=== PATIENT | female | born 1945 | race Caucasian/White ===

== ENCOUNTER 2020-03-07 19:01 | Inpatient (IN) | payer MEDICARE ==
[~2020-03-07] VITALS: Ht 160 cm; Wt 82.8 kg
--- NOTE | 2020-03-07 19:25 | NUR ---
Dr Freed got the patient from the [facility] and placed the pt in T2 and did his H&P, I then did triage and so there is a delay in order of an EKG.
[2020-03-07] MEDS ORDERED: HYDR12.55 PO (19:49)
[2020-03-07] MEDS ORDERED: METO-411 PO (19:49)
[2020-03-07 20:03] LABS: BASOPHILS # (AUTO) 0.1 X10'3 (0-0.2); BASOPHILS % (AUTO) 0.9 % (0-1); EOSINOPHILS # (AUTO) 0.4 X10'3 (0-0.9); EOSINOPHILS % (AUTO) 4.2 % (0-6); HEMATOCRIT 40.5 % (35.0-45.0); HEMOGLOBIN 13.6 g/dl (12.0-16.0); LYMPHOCYTES # (AUTO) 2.3 X10'3 (1.1-4.8); LYMPHOCYTES % (AUTO) 24.2 % (21-51); MEAN CORPUSCULAR HEMOGLOBIN 29.7 PG (27.0-31.0); MEAN CORPUSCULAR HGB CONC 33.6 g/dL (33.0-36.5); MEAN CORPUSCULAR VOLUME 88.4 FL (78-98); MEAN PLATELET VOLUME 8.6 FL (7.4-10.4); MONOCYTES # (AUTO) 0.9 X10'3 (0-0.9); NEUTROPHILS # (AUTO) 5.7 X10'3 (1.8-7.7); NEUTROPHILS % (AUTO) 60.7 % (42-75); PLATELET COUNT 254 X10'3 (140-440); RED BLOOD COUNT 4.58 X10'6 (4.20-5.60); RED CELL DISTRIBUTION WIDTH 13.8 % (11.5-14.5); WHITE BLOOD COUNT 9.3 X10'3 (4.5-11.0)
[2020-03-07 20:12] LABS: CLARITY,URINE CLEAR (Clear); COLOR,URINE STRAW (Yellow); GLUCOSE, URINE NEGATIVE (Neg); KETONES,URINE NEGATIVE (Neg); LEUKOCYTE ESTERASE ,URINE NEGATIVE (Neg); NITRITES, URINE NEGATIVE (Neg); OCCULT BLOOD,URINE NEGATIVE (Neg); PROTEIN,URINE NEGATIVE (Neg); UROBILINOGEN,URINE 0.2 E.U/dL (0.2-1.0)
[2020-03-07 20:13] LABS: ALANINE AMINOTRANSFERASE 19 U/L (12-78); ALBUMIN 3.6 G/DL (3.4-5.0); ALBUMIN/GLOBULIN RATIO 0.9 (1.1-1.5); ALKALINE PHOSPHATASE 61 IU/L (46-116); ANION GAP 4 (8-16); ASPARTATE AMINO TRANSFERASE 16 U/L (10-37); BILIRUBIN,TOTAL 0.4 MG/DL (0.1-1.0); BLOOD UREA NITROGEN 18 MG/DL (7-18); BUN/CREATININE RATIO 16.1 (6.6-38.0); CALCIUM 9.1 MG/DL (8.5-10.1); CHLORIDE 101 MMOL/L (99-107); CREATININE 1.12 MG/DL (0.40-0.90); GLUCOSE 98 MG/DL (70-104); PARTIAL THROMBOPLASTIN TIME 30 SECONDS (22-32); POTASSIUM 4.6 MMOL/L (3.5-5.1); SODIUM 136 MMOL/L (135-145); TOTAL CARBON DIOXIDE 30.7 MMOL/L (24-32); TOTAL PROTEIN 7.4 G/DL (6.4-8.2); eGFR 47 ML/MIN
[2020-03-07 20:19] LABS: UA COLLECTION TYPE CLN CATCH MIDSTREAM
[2020-03-07] MEDS ORDERED: iohexol 350MG/ML 100ml bottle IV ONE (20:38)
[2020-03-07] MEDS ORDERED: hyDRALAzine 10mg tablet PO SCH (20:40)
[2020-03-07] MEDS ORDERED: hyDRALAzine 10mg tablet PO ONE (20:40)
[2020-03-07] MEDS ORDERED: temazepam 15mg capsule PO PRN (21:00)
--- NOTE | 2020-03-07 22:10 | NUR ---
Hospitalist at bedside examining pt. for possible admission.
[2020-03-07] MEDS ORDERED: potassium CL 10mEq/100ml bag 100 ML IV PRN ×2 (22:40)
[2020-03-07] MEDS ORDERED: magnesium 4gm in 100ml NS 100 ML IV PRN (22:40)
[2020-03-07] MEDS ORDERED: magnesium hydroxide 30ml (MOM) UD suspension PO PRN (22:40)
[2020-03-07] MEDS ORDERED: metoclopramide 5 mg/ml inj IV PRN (22:40)
[2020-03-07] MEDS ORDERED: potassium Cl 20 mEq SR tablet PO PRN ×2 (22:40)
[2020-03-07] MEDS ORDERED: mag hydrox/Alum hydrox/simeth 30ml oral suspension PO PRN (22:40)
[2020-03-07] MEDS ORDERED: magnesium Cl slow-release 64mg tablet PO PRN (22:40)
[2020-03-07] MEDS ORDERED: acetaminophen 325mg tablet PO PRN ×2 (22:40)
[2020-03-07] MEDS ORDERED: ondansetron/PF 4mg/2ml inj IV PRN (22:40)
[2020-03-07] MEDS ORDERED: magnesium 2GM in 50ml NS 50 ML IV PRN (22:40)
[2020-03-07] MEDS: amLODIPine 5mg tablet PO SCH (22:54)
[2020-03-07] MEDS: losartan 25mg tablet PO SCH (23:00)
[2020-03-07 23:30] VITALS: BP 161/85
--- NOTE | 2020-03-07 23:30 | NUR ---
pt arrived to PCU unit via ER via wheelchair, pt is not in any respiratory distress at this time, will continue to monitor pt
[2020-03-07] MEDS: hydrALAZINE 25 MG tablet PO SCH (23:54)
[2020-03-08 02:00] VITALS: BP 131/77
[2020-03-08 06:00] VITALS: BP 189/86
--- NOTE | 2020-03-08 06:06 | NUR ---
Patient in room PCU 3013. I have received report from ROWAN Estrella and had the opportunity to ask questions and assume patient care.
[2020-03-08 06:22] LABS: HEMATOCRIT 41.3 % (35.0-45.0); HEMOGLOBIN 13.6 g/dl (12.0-16.0); MEAN CORPUSCULAR HEMOGLOBIN 29.5 PG (27.0-31.0); MEAN CORPUSCULAR VOLUME 89.4 FL (78-98); MEAN PLATELET VOLUME 9.1 FL (7.4-10.4); PLATELET COUNT 240 X10'3 (140-440); RED BLOOD COUNT 4.62 X10'6 (4.20-5.60); WHITE BLOOD COUNT 8.4 X10'3 (4.5-11.0)
--- NOTE | 2020-03-08 06:25 | NUR ---
Problems reprioritized. Patient report given, questions answered & plan of care reviewed with Madeleine DONAHUE.
[2020-03-08 06:28] LABS: ALBUMIN 3.3 G/DL (3.4-5.0); ANION GAP 6 (8-16); BLOOD UREA NITROGEN 15 MG/DL (7-18); BUN/CREATININE RATIO 15.3 (6.6-38.0); CHLORIDE 105 MMOL/L (99-107); CHOL/HDL RATIO 5.4 (0.00-4.99); CHOLESTEROL 244 MG/DL (0-200); CREATININE 0.98 MG/DL (0.40-0.90); GLUCOSE 89 MG/DL (70-104); HDL CHOLESTEROL 45 MG/DL (35-60); LDL CHOLESTEROL 176 MG/DL (50-100); MAGNESIUM 2.3 MG/DL (1.5-2.4); PHOSPHORUS 4.4 MG/DL (2.3-4.5); POTASSIUM 4.3 MMOL/L (3.5-5.1); SODIUM 142 MMOL/L (135-145); TOTAL CARBON DIOXIDE 31.1 MMOL/L (24-32); TRIGLYCERIDES 103 MG/DL (20-135); eGFR 55 ML/MIN
[2020-03-08] MEDS: amLODIPine 5mg tablet PO SCH (07:10)
[2020-03-08] MEDS: hydrALAZINE 25 MG tablet PO SCH (07:10)
[2020-03-08] MEDS: losartan 25mg tablet PO SCH (07:11)
[2020-03-08] MEDS ORDERED: metoprolol succinate 25mg (24-HOUR) SR. Tablet PO SCH (08:00)
[2020-03-08] MEDS ORDERED: enoxaparin 40mg/0.4ml syringe SUBCUT SCH (08:00)
[2020-03-08] MEDS ORDERED: K and/or MAG REPLACEMENT MC SCH (08:00)
[2020-03-08] MEDS ORDERED: HYDROchlorothiazide 12.5mg capsule PO SCH (08:00)
--- NOTE | 2020-03-08 10:04 | NUR ---
PAGER ID: [phone] MESSAGE: [id number]: Yadira Christian ODONNELL Pt is having cramping/muscle spasms on hand/ right foot. Would you like to order calcium for pt? Kindly advise -Madeleine [phone]
[2020-03-08] MEDS ORDERED: amLODIPine 5mg tablet PO SCH (10:25)
[2020-03-08] MEDS ORDERED: atorvastatin 20mg tablet PO SCH (10:25)
[2020-03-08] MEDS ORDERED: losartan 50mg tablet PO SCH (10:35)
[2020-03-08 11:00] VITALS: BP 116/63
--- NOTE | 2020-03-08 11:17 | NUR ---
PAGER ID: [phone] MESSAGE: [id number]: Yadira Adilene - Pt received all BP meds in AM. BP went from SBP 180s to 110s two hours post admin. To clarify woudyou still like to give losartan dose of 50mg? -Madeleine [phone]
--- NOTE | 2020-03-08 11:27 | NUR ---
New orders from Araceli to discontinue hydralazine
[2020-03-08 15:00] VITALS: BP 146/68
[2020-03-08] MEDS ORDERED: LOSA50TA64 PO (15:03)
[2020-03-08] MEDS ORDERED: NOR5T PO (15:03)
[2020-03-08] MEDS ORDERED: ATOR20TA66 PO (15:03)
--- NOTE | 2020-03-08 16:08 | NUR ---
Pt stable for discharge. Provided discharge education and instructions. Answered any questions and/or concerns pt may have. Verified preferred pharmacy. Removed tele. Removed PIV, cannula intact. Belongings sent down with pt. Walked with pt down to lobby and into daughter's private vehicle.
== END 2020-03-08 16:16 | disposition home or self-care (01) | DRG 305 ==
LOC: ER 19:01 → ED HOLD 22:40 → PCU 3S 23:28
PROVIDERS: ADMIT Family Medicine; ATTEND Family Medicine
PROC: B3251ZZ Computerized Tomography (CT Scan) of Bilateral Common Carotid Arteries using Low Osmolar Contrast (ICD-10-PCS; principal; 2020-03-07)
PROC: B32G1ZZ Computerized Tomography (CT Scan) of Bilateral Vertebral Arteries using Low Osmolar Contrast (ICD-10-PCS; 2020-03-07)
PROC: B3281ZZ Computerized Tomography (CT Scan) of Bilateral Internal Carotid Arteries using Low Osmolar Contrast (ICD-10-PCS; 2020-03-07)
DX: I16.0 Hypertensive urgency (principal); N17.9 Acute kidney failure, unspecified; E78.00 Pure hypercholesterolemia, unspecified; E78.5 Hyperlipidemia, unspecified; I48.91 Unspecified atrial fibrillation; Z96.652 Presence of left artificial knee joint; I12.9 Hypertensive chronic kidney disease with stage 1 through stage 4 chronic kidney disease, or unspecified chronic kidney disease; N18.9 Chronic kidney disease, unspecified; R01.1 Cardiac murmur, unspecified; Z86.73 Personal history of transient ischemic attack (TIA), and cerebral infarction without residual deficits; Z88.8 Allergy status to other drugs, medicaments and biological substances
CPT/HCPCS: 36415; 70496; 70498; 70551; 71045; 80048; 80053; 80061; 81003; 83735; 84100; 84443; 85025; 85027; 85610; 85730; 87081; 93005; 93306; 93880; 97116; 97161; 99285; G0378; J1650; Q9967